=== PATIENT | female | born 1970 | race Caucasian/White ===

== ENCOUNTER 2018-09-23 11:35 | Outpatient (REF) | payer MEDICAID, SELFPAY ==
--- NOTE | 2018-09-23 10:40 | PAPFT_PTH ---
PATIENT: Graciela Sam LOC: [facility]#:[id number] AGE/SX: 47/F ROOM: RE09/23/[address]: Erica Pozo : 1970 BED: DIS: 09/23/2018 SPEC #: [id number] RECD: 09/24/18 13:07 STATUS: NENA PEGUERO #: [id number] SADIA: 09/23/18 10:[address]: Erica Pozo [facility]PT[facility] Cytology RECD BY: Sloane Lee ENTERED: 09/24/18 13:07 SP TYPE: PAPFT OTHR DR: Abrahan Martinez Tissues: 1 - CX/ENDOCX FOR PAP SMEARS Procedures: PAP THIN PREP/[facility] Screening HPV DNA PROBE Comments: [id number] (CHLAMYDIA/GC)
[2018-09-25 13:58] LABS: Chlamydia Result Negative; GC Result Negative; Specimen Description SEE COMMENTS
== END 2018-09-23 11:55 ==
LOC: NCHCN 11:35
PROVIDERS: PCP Internal Medicine; Visit Provider Nurse Practitioner Family
DX: Z11.3 Encounter for screening for infections with a predominantly sexual mode of transmission (principal); Z12.4 Encounter for screening for malignant neoplasm of cervix; Z11.51 Encounter for screening for human papillomavirus (HPV)
CPT/HCPCS: 87491; 87591; 88142; 87624

== ENCOUNTER 2020-04-23 13:32 | Outpatient (REF) | payer MEDICAID, SELFPAY ==
[2020-04-26 02:04] LABS: SARS-CoV-2 RNA Undetected (Undetected); SARS-CoV-2 Specimen Source Nasal
== END 2020-04-23 13:52 ==
LOC: NCHCN 13:32
PROVIDERS: PCP Internal Medicine; Visit Provider Physician Assistant
DX: J06.9 Acute upper respiratory infection, unspecified (principal)
CPT/HCPCS: U0003

== ENCOUNTER 2020-07-16 17:46 | Outpatient (REF) | payer MEDICAID, SELFPAY ==
[2020-07-19 17:47] LABS: COVID-19 RT-PCR Result Not Detected ((See Note))
== END 2020-07-16 17:47 | disposition home or self-care (01) ==
LOC: NCHCN 17:46
PROVIDERS: PCP Internal Medicine; Visit Provider Internal Medicine
DX: Z20.822 Contact with and (suspected) exposure to COVID-19 (principal); R53.83 Other fatigue; J02.9 Acute pharyngitis, unspecified
CPT/HCPCS: U0003

== ENCOUNTER 2022-06-21 16:48 | Outpatient (REF) | payer MEDICAID, SELFPAY ==
[2022-06-21 21:49] LABS: Abs Immature Grans 0.02 10^3/uL (0.0-0.06); Absolute Basophil Count 0.06 10^3/uL (0.0-0.2); Absolute Eosinophil Count 0.19 10^3/uL (0.0-0.7); Absolute Lymphocyte Count 2.87 10^3/uL (1.2-3.4); Absolute Monocyte Count 0.71 10^3/uL (0.1-0.8); Absolute Neutrophil Count 5.89 10^3/uL (1.2-6.7); Basophils % 0.6; HGB 12.3 g/dL (11.2-15.7); Immature Grans % 0.2; Lymphocytes % 29.5; MCH 29.6 pg (27.0-33.0); MCHC 32.4 % (32.0-36.0); MCV 91 fL (80-95); MPV 9.6 fL (8.0-11.0); Monocytes % 7.3; Neutrophils % 60.4; Platelet Count 359 10^3/uL (130-400); RBC 4.16 10^6/uL (3.93-5.22); RDW 12.8 % (11.7-14.6); RDW-SD 42.9 fL; WBC 9.74 10^3/uL (4.4-10.8)
[2022-06-21 22:06] LABS: ALT 24 U/L (14-59); AST 20 U/L (15-37); Albumin 3.4 g/dL (3.4-5.0); Alkaline Phosphatase 109 U/L (46-116); BUN 12 mg/dL (7-18); Bilirubin, Total 0.2 mg/dL (0.2-1.0); CREATININE 0.8 mg/dL (0.55-1.02); Chloride 106 mmol/L (98-107); Glucose 96 mg/dL (74-106); Potassium 3.9 mmol/L (3.5-5.1); Sodium 140 mmol/L (136-145); TSH 3.99 uIU/mL (0.36-3.74); Total Protein 7.6 g/dL (6.4-8.2)
[2022-06-21 22:23] LABS: Iron 50 ug/dL (50-170); Total Iron Binding Capacity 191 ug/dL (250-450); Transferrin Sat 26 % (15-50)
[2022-06-21 22:49] LABS: Ferritin 412 ng/mL (8-252)
== END 2022-06-21 16:49 | disposition home or self-care (01) ==
LOC: NCHCN 16:48
PROVIDERS: PCP Internal Medicine; Visit Provider Physician Assistant
DX: F51.04 Psychophysiologic insomnia (principal); G25.81 Restless legs syndrome; R73.03 Prediabetes; R53.83 Other fatigue; R79.89 Other specified abnormal findings of blood chemistry
CPT/HCPCS: 80053; 82728; 83540; 83550; 84443; 85025

== ENCOUNTER 2022-09-19 13:55 | Outpatient (REF) | payer MEDICAID, SELFPAY ==
[2022-09-19 20:19] LABS: TSH 1.17 uIU/mL (0.36-3.74)
== END 2022-09-19 13:56 | disposition home or self-care (01) ==
LOC: NCHCN 13:55
PROVIDERS: PCP Internal Medicine; Visit Provider Physician Assistant
DX: E03.9 Hypothyroidism, unspecified (principal)
CPT/HCPCS: 84443

== ENCOUNTER 2023-01-02 18:55 | Outpatient (REF) | payer MEDICAID, SELFPAY ==
[2023-01-02 19:09] LABS: HCT 39.2 % (36.0-46.0); HGB 12.8 g/dL (11.2-15.7); MCH 29.4 pg (27.0-33.0); MCHC 32.7 % (32.0-36.0); MCV 90 fL (80-95); Platelet Count 378 10^3/uL (130-400); RBC 4.35 10^6/uL (3.93-5.22); RDW 12.7 % (11.7-14.6); RDW-SD 41.9 fL
[2023-01-02 19:31] LABS: ALT 23 U/L (14-59); AST 15 U/L (15-37); Albumin 3.1 g/dL (3.4-5.0); Alkaline Phosphatase 107 U/L (46-116); Anion Gap 10.5 mmol/L (3-11); BUN 15 mg/dL (7-18); Bilirubin, Total 0.2 mg/dL (0.2-1.0); CO2 23.5 mmol/L (21.0-32.0); CREATININE 0.9 mg/dL (0.55-1.02); Calcium 8.7 mg/dL (8.5-10.1); Chloride 106 mmol/L (98-107); Estimated GFR 76.44 (mL/min/1.73m2); Glucose 143 mg/dL (74-106); Magnesium 1.9 mg/dL (1.8-2.4); Potassium 3.6 mmol/L (3.5-5.1); Sodium 140 mmol/L (136-145); TSH (W/Ref FT4) 1.28 uIU/mL (0.36-3.74); Total Protein 7.4 g/dL (6.4-8.2); Troponin I < 50 ng/L (<or=60)
== END 2023-01-02 18:56 | disposition home or self-care (01) ==
LOC: NCHCN 18:55
PROVIDERS: PCP Internal Medicine; Visit Provider Physician Assistant
DX: R07.89 Other chest pain (principal); R06.02 Shortness of breath; R00.2 Palpitations; R42 Dizziness and giddiness
CPT/HCPCS: 80053; 85027; 83735; 84443; 84484

== ENCOUNTER 2023-11-08 15:27 | Outpatient (REF) | payer SELFPAY ==
[2023-11-08 19:03] LABS: Abs Immature Grans 0.02 10^3/uL (0.0-0.06); Absolute Basophil Count 0.05 10^3/uL (0.0-0.2); Absolute Eosinophil Count 0.13 10^3/uL (0.0-0.7); Absolute Lymphocyte Count 2.47 10^3/uL (1.2-3.4); Absolute Monocyte Count 0.64 10^3/uL (0.1-0.8); Absolute Neutrophil Count 5.53 10^3/uL (1.2-6.7); Basophils % 0.6 %; Eosinophils % 1.5 %; HCT 40.7 % (36.0-46.0); HGB 13.2 g/dL (11.2-15.7); Immature Grans % 0.2 %; Lymphocytes % 27.9 %; MCH 29.1 pg (27.0-33.0); MCHC 32.4 % (32.0-36.0); MCV 90 fL (80-95); MPV 9.4 fL (8.0-11.0); Monocytes % 7.2 %; Neutrophils % 62.6 %; Platelet Count 375 10^3/uL (130-400); RBC 4.53 10^6/uL (3.93-5.22); RDW-SD 42.9 fL; WBC 8.84 10^3/uL (4.4-10.8)
[2023-11-08 19:24] LABS: ALT 35 U/L (14-59); AST 24 U/L (15-37); Albumin 3.5 g/dL (3.4-5.0); Alkaline Phosphatase 104 U/L (46-116); Anion Gap 4.3 mmol/L (3-11); BUN 14 mg/dL (7-18); Bilirubin, Total 0.4 mg/dL (0.2-1.0); CO2 31.7 mmol/L (21.0-32.0); CREATININE 0.8 mg/dL (0.55-1.02); Calcium 9.3 mg/dL (8.5-10.1); Chloride 104 mmol/L (98-107); Glucose 92 mg/dL (74-106); Potassium 4.2 mmol/L (3.5-5.1); Sodium 140 mmol/L (136-145)
== END 2023-11-08 15:28 | disposition home or self-care (01) ==
LOC: NCHCN 15:27
PROVIDERS: PCP Internal Medicine; Visit Provider Physician Assistant
DX: K76.0 Fatty (change of) liver, not elsewhere classified (principal)
CPT/HCPCS: 80053; 85025

== ENCOUNTER 2024-07-31 20:07 | Outpatient (REF) | payer OTHER, SELFPAY ==
[2024-07-31 19:51] LABS: Bacteria Few HPF (Negative); Crystals Negative HPF (Negative); Epithelial Cells Moderate HPF (Negative); Mucus Trace (Negative); RBC 0-2 HPF (0-2); WBC 0-2 HPF (0-5)
[2024-07-31 19:52] LABS: C & S Indicated? C&S Done As Ordered; Casts Negative LPF (Negative)
== END 2024-07-31 20:08 | disposition home or self-care (01) ==
LOC: NCHCN 20:07
PROVIDERS: PCP Internal Medicine; Visit Provider Internal Medicine
DX: R10.9 Unspecified abdominal pain (principal); R82.89 Other abnormal findings on cytological and histological examination of urine
CPT/HCPCS: 81015; 87086